=== PATIENT | female | born 1990 | race African-American/Black ===

== ENCOUNTER 2018-08-05 09:45 | Emergency (ER) | payer OTHER ==
[~2018-08-05] VITALS: Ht 165.1 cm; Wt 86.2 kg
[2018-08-05 09:56] VITALS: BP 109/66
--- NOTE | 2018-08-05 10:03 | NUR ---
28/F bib self c/o RLQ ABDOMINAL pain x 2 days , + n/v x 2 days. pt states she was sent here from [facility] to rule out appendicitis. pmh: acl surgery 2011. rx: jose @ 0600 today . SKIN IS PINK/WARM/DRY; AAOX4 WITH EVEN AND STEADY GAIT; LUNGS CLEAR BL; HR EVEN AND REGULAR; PT DENIES ANY FEVER, CP, SOB, OR COUGH AT THIS TIME; PATIENT STATES PAIN OF 7/10 AT THIS TIME. PATIENT POSITIONED FOR COMFORT; HOB ELEVATED; BEDRAILS UP X2; BED DOWN. ER MD MADE AWARE OF PT STATUS.
--- NOTE | 2018-08-05 10:04 | NUR ---
Patient being evaluated by physician at bedside.
--- NOTE | 2018-08-05 10:04 | NUR ---
[facility] in [facility] - 08/05/18 at 1005 by MED1 Patient being evaluated by DR BAZZI at bedside.
--- NOTE | 2018-08-05 10:45 | NUR ---
20G IV INSERTED ON LAC. SITE PATENT WITH GOOD BLOOD RETURN. PATIENT STATED PAIN UPON FLUSHING, NO SWELLING NOTED. CALLED FOR A SECOND RN, AMBROSIO TO CHECK THE IV.
[2018-08-05 10:47] LABS: BASOPHILS % (AUTO) 0.5 % (0.0-2.0); EOSINOPHILS % (AUTO) 0.6 % (0.0-4.0); HEMATOCRIT 42.5 % (36-48); HEMOGLOBIN 13.5 g/dL (12.0-16.0); LYMPHOCYTES # (AUTO) 1.6 K/uL (2.5-16.5); LYMPHOCYTES % (AUTO) 30.8 % (20.5-51.1); MEAN CORPUSCULAR HEMOGLOBIN 28 pg (27-31); MEAN CORPUSCULAR HGB CONC 32 g/dL (33-37); MEAN CORPUSCULAR VOLUME 87.1 fL (80-94); MONOCYTES # (AUTO) 0.5 K/uL (0.8-1.0); MONOCYTES % (AUTO) 9.7 % (1.7-9.3); NEUTROPHILS % (AUTO) 58.4 % (42.2-75.2); PLATELET COUNT (AUTO) 209 K/uL (140-450); RED BLOOD CELL COUNT(AUTO) 4.88 MIL/uL (4.20-5.40); RED CELL DISTRIBUTION WIDTH 13.6 % (11.6-13.7); WHITE BLOOD COUNT (AUTO) 5.2 K/uL (4.8-10.8)
--- NOTE | 2018-08-05 10:50 | NUR ---
L AC 20 G IV ACCESS NOTED ON PATIENT , NO SWELLING NOTED TO ARM, WARM TO TOUCH. CHECKED FOR IV PATENTENCY , FLUSHED INITIALLY WITH 5CC SALINE NO RESISTANCE , ASKED PATIENT " ANY PAIN ?"PT. STATED " IT DOES BUT IT DOESNT HURT THAT MUCH ANYMORE".PT POINTED TO BICEP AREA. CONTINUED TO FLUSH W/ 3CC , NO SWELLING NOTED TO ARM, NO REDNESS , WARM TO TOUCH. OCTAVIO PAVON AND CHARGE NURSE OCTAVIO VÁZQUEZ MADE AWARE.
[2018-08-05 11:07] LABS: ANION GAP 9.9 (8-16); CARBON DIOXIDE 28.9 mmol/L (21-32); POTASSIUM 3.8 mmol/L (3.5-5.1)
[2018-08-05 11:08] LABS: ALBUMIN 3.8 g/dL (3.4-5.0); TOTAL BILIRUBIN 0.5 mg/dL (0.0-1.0)
--- NOTE | 2018-08-05 12:10 | NUR ---
PATIENT COMPLAINED OF PAIN ON THE IV SITE LT.AC #20. REASSED SITE WITH MINIMAL SWELLING. FLUSHED WITH SALINE FLUSH WITH HESITATION AND NO BLOOD RETURN. IV DISCONTINUED COVERED WITH DRESSING. ICE PACK APPLIED. PRIMARY NURSE LIBRADO MADE AWARE.
--- NOTE | 2018-08-05 13:10 | NUR ---
PT DECLINED ASSESSMENT OF V/S AT THIS TIME.
--- NOTE | 2018-08-05 13:10 | NUR ---
PATIENT STATED HER ARM MORE SWOLLEN. REASSED LT. ARM WITH DR. BAZZI. MORE SWOLLEN FROM THE FIRST ASSESSMENT. PATIENT UPSET. DR. BAZZI REASSESS LT.ARM
--- NOTE | 2018-08-05 13:15 | NUR ---
MAINE QIU INFORMED OF PATIENTS COMPLAINS AND PATIENT WOULD LIKE TO FILE A COMPLAIN.
--- NOTE | 2018-08-05 13:41 | NUR ---
PATIENT REFUESING WARM COMPRESS AND ELEVATION OF ARM AT THIS TIME. ADIVISED THAT THIS IS THE BEST COURSE OF ACTION.
--- NOTE | 2018-08-05 14:05 | NUR ---
AT BEDSIDE WITH THE PATIENT RESPONDING TO THE CONCERNS SHE HAD ABOUT THE IV INFILTRATION. I LISTENED TO HER CONCERNS. THE ARM APPEARS SLIGHTLY SWOLLEN, NO REDNESS NOTED, ATTEMPTED TO PALPATE TO ASSESS INDURATION BUT PATIENT WITHREW HER ARM. NOTED PT PRESSING HER ARM. COTTON BALL SECURED WITH TAPE WAS NOTED ON THE AFFECTED ARM, LEFT ARM. PATIENT ABLE TO MOVE ARM. SAW WARM PACKS ON THE BEDISDE TABLE AND I OFFERED HELP TO APPLY BUT PATIENT REFUSED. SHE WAS ALSO ADVISED TO ELEVATE HER AFFECTED ARM BUT ALSO REFUSED. DISCUSSED HER CONCERNS WITH THE PRIMARY NURSE KATHIE PAVON, ASSOCIATE PROFESSOR OF ARCHAEOLOGY, AND DR. BAZZI. PATIENT LATER STATED "WHO SHOULD MY METAL EXPEDITER CONTACT BECAUSE I AM SUING". I RE-ITERATED THAT PLAN OF CARE TO HER BUT PATIENT REFUSED TO RECEIVE FURTHER TREATMENT. I PROVIDED HER MY BUSINESS CARD SHOULD SHE REQUIRE FURTHER ASSISTANCE.
--- NOTE | 2018-08-05 14:06 | NUR ---
MAINE AT BEDSIDE SPEAKING WITH PATIENT. Addendum: 08/05/18 at 1407 by NO MAINE QIU
--- NOTE | 2018-08-05 15:00 | NUR ---
PICTURES TAKEN OF PATIENTS ARM AT THIS TIME. WILL ATTACH TO PATIENTS CHART.
[2018-08-05 15:10] VITALS: BP 109/66
--- NOTE | 2018-08-05 15:10 | NUR ---
Patient discharged with v/s stable. Written and verbal after care instructions given and explained. Patient alert, oriented and verbalized understanding of instructions. Ambulatory with steady gait. All questions addressed prior to discharge. ID band removed. Patient advised to follow up with PMD. Rx of ZOFRAN NORCO, IBUPROFEN, MIRALAX given. Patient educated on indication of medication including possible reaction and side effects. Opportunity to ask questions provided and answered. Patient education to apply warm compresses to her upper left arm and keep it elevated when possible, patient stated understanding. Informed that if her arm became more swollen, painful or changed in color to seek medical attention.
--- NOTE | 2018-08-05 15:10 | NUR ---
Note [email or web address] in EDM - 08/05/18 at 1552 by NO Patient discharged with v/s stable. Written and verbal after care instructions given and explained. Patient alert, oriented and verbalized understanding of instructions. Ambulatory with steady gait. All questions addressed prior to discharge. ID band removed. Patient advised to follow up with PMD. Rx of ZOFRAN NORCO, IBUPROFEN, MIRALAX given. Patient educated on indication of medication including possible reaction and side effects. Opportunity to ask questions provided and answered.
== END 2018-08-05 15:10 | disposition home or self-care (01) ==
LOC: MED 09:45
DX: R10.32 Left lower quadrant pain (principal); M79.602 Pain in left arm; R11.2 Nausea with vomiting, unspecified; R19.7 Diarrhea, unspecified; Z88.5 Allergy status to narcotic agent
CPT/HCPCS: 36415; 74177; 80053; 81002; 81025; 85025; 99284; Q9967